=== PATIENT | female | born 1960 | race Caucasian/White ===

== ENCOUNTER 2016-08-22 12:56 | Inpatient (IN) | payer OTHER ==
[~2016-08-22] VITALS: Ht 157.5 cm; Wt 106.1 kg
--- NOTE | 2016-08-22 13:09 | NUR ---
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
[2016-08-22 13:23] LABS: BASOPHILS # (AUTO) 0.1 /CMM (0.0-0.2); BASOPHILS % (AUTO) 0.6 % (0.0-2.0); EOSINOPHILS # (AUTO) 0.1 /CMM (0.0-0.7); EOSINOPHILS % (AUTO) 0.8 % (0.0-6.0); HEMATOCRIT 40 % (33-45); HEMOGLOBIN 13.4 g/dL (11.5-14.8); LYMPHOCYTES % (AUTO) 41.6 % (20.0-44.0); MEAN CORPUSCULAR HEMOGLOBIN 29 PG (26.0-33.0); MEAN CORPUSCULAR HGB CONC 34 g/dl (31.0-36.0); MEAN CORPUSCULAR VOLUME 86 fL (82-100); MONOCYTES # (AUTO) 0.7 /CMM (0.1-1.30); MONOCYTES % (AUTO) 7.9 % (2.0-12.0); NEUTROPHILS # (AUTO) 4.7 /CMM (1.8-8.9); NEUTROPHILS % (AUTO) 49.1 % (43.0-81.0); PLATELET COUNT (AUTO) 380 /CMM (150-450); RDW COEFFICIENT OF VARIATION 13.2 (11.5-15.0); RED BLOOD CELL COUNT(AUTO) 4.65 MIL/uL (4.0-5.2); WHITE BLOOD COUNT (AUTO) 9.5 K/uL (4.3-11.0)
[2016-08-22] MEDS ORDERED: ASPIRIN 325 MG TABLET PO ONE (13:30)
[2016-08-22 13:33] LABS: CALCIUM, SERUM 9.1 mg/dL (8.5-10.1); CARBON DIOXIDE 28 mmol/L (21-32); CHLORIDE 100 mmol/L (98-107); CREATININE 0.7 mg/dL (0.6-1.3); GLUCOSE 134 mg/dL (74-106); POTASSIUM 3.6 mmol/L (3.5-5.1); SODIUM SERUM 136 mmol/L (136-145); UREA NITROGEN, BLOOD 16 mg/dL (7-18)
[2016-08-22] MEDS ORDERED: ASPIRIN 325 MG TABLET ONE (13:36)
[2016-08-22 13:39] LABS: ALANINE AMINOTRANSFERASE 36 U/L (12-78); ALBUMIN 3.6 g/dL (3.4-5.0); ALKALINE PHOSPHATASE 77 U/L (46-116); ASPARTATE AMINOTRANSFERASE 19 U/L (15-37); BILIRUBIN,DIRECT 0.1 mg/dL (0.0-0.2); BILIRUBIN,TOTAL 0.5 mg/dL (0.2-1.0); TOTAL PROTEIN, SERUM 8.1 g/dL (6.4-8.2)
[2016-08-22 13:41] LABS: TROPONIN I < 0.017 ng/mL (0.00-0.056)
[2016-08-22 13:47] LABS: INR 0.9 (0.87-1.13); PROTHROMBIN TIME 9.6 SECS (9.5-12.7)
[2016-08-22] MEDS ORDERED: IV NS 0.9% 250 ML IV ONE (14:06)
[2016-08-22] MEDS ORDERED: IOHEXOL-350 100 ML VIAL IV ONE (14:06)
[2016-08-22] MEDS ORDERED: CT SWABBABLE VALVE TRANS SET 1 EA INFUS.SET MC ONE (14:06)
[2016-08-22] MEDS ORDERED: HYDR25TA4 PO (14:43)
[2016-08-22] MEDS ORDERED: ATOR80TA PO (14:43)
[2016-08-22] MEDS ORDERED: GABA600T2 PO (14:43)
[2016-08-22] MEDS ORDERED: MAG HYDROX/AL HYDROX/SIMETH 30 ML UDC PO PRN (15:30)
[2016-08-22] MEDS ORDERED: ZOLPIDEM TARTRATE 5 MG TABLET PO PRN (15:30)
[2016-08-22] MEDS ORDERED: Z GUARD REMEDY 2 OZ OINT TP PRN (15:30)
[2016-08-22] MEDS ORDERED: MAGNESIUM HYDROXIDE 30 ML UDC PO PRN (15:30)
[2016-08-22] MEDS ORDERED: HYDROCODONE/APAP 5/325MG 1 EACH TABLET PO PRN (15:30)
[2016-08-22] MEDS ORDERED: ACETAMINOPHEN 325 MG TABLET PO PRN (15:30)
[2016-08-22] MEDS ORDERED: ONDANSETRON HCL/PF 4 MG/2 ML VIAL IVP PRN (15:30)
[2016-08-22 16:59] VITALS: BP 137/88
[2016-08-22] MEDS ORDERED: GABAPENTIN 100 MG CAPSULE PO SCH (17:00)
--- NOTE | 2016-08-22 17:00 | NUR ---
RN OPENING NOTES RECEIVED PATIENT FROM THE ER, NO SOB OR DISTRESS NOTED. NO CHEST PAIN AT THE MOMENT. PATIENT ON ROOM AIR. PATIENT ON TELE MONITOR SR HEART RATE OF 69. A/O X 4, VERBALLY RESPONSIVE AND ABLE TO MAKE NEEDS KNOWN. IV INTACT AND PATENT. KEPT PATIENT CLEAN AND COMFORTABLE IN BED. CALL LIGHT WITHIN PATIENT REACH, WILL CONTINUE TO MONITOR ACCORDINGLY.
--- NOTE | 2016-08-22 18:30 | NUR ---
RN NOTES PATIENT WANTED TO LEAVE AMA BUT ENCOURAGED HER TO STAY.
--- NOTE | 2016-08-22 19:27 | NUR ---
RN CLOSING NOTES ALL NEEDS PROVIDED, ATTENDED, AND ANTICIPATED. KEPT PATIENT CLEAN AND COMFORTABLE IN BED. CALL LIGHT WITHIN PATIENT REACH, WILL CONTINUE TO MONITOR ACCORDINGLY. ENDORSED TO NEXT SHIFT RN TO CONTINUE CARE
--- NOTE | 2016-08-22 19:30 | NUR ---
LOUVER MORTISER OPERATOR INITIAL NOTE RECEIVED PT WAKE AND ALERT ORIENTED X4, NO COMPLAINT OF PAIN OR RESPIRATORY DISTRESS, ACCORDING TO AM NURSE PT WANTS TO LEAVE AMA, SPOKE TO PATIENT AND EXPLAINED THE IMPORTANCE OF STAYING AND UNDERGOING ALL PERTINENT TEST TO DETERMINE CAUSE OF AILMENT, PT AGREED TO STAY OVERNIGHT, WILL MAINTAIN SAFETY MEASURES AT ALL TIMES, NEEDS WILL BE ANTICIPATED AND ATTENDED TO PROMPTLY.
--- NOTE | 2016-08-22 20:10 | NUR ---
UPON DOING ROUNDS, PT STATES THE DESIRE OF GOING HOME AMA AGAIN (SHE HAD EXPRESSED THIS DESIRE OF LEAVING AMA TO AM SHIFT NURSE BUT WAS ABLE TO RECONSIDER EARLIER AND DECIDED TO STAY) EXPLAINED THAT THERE IS A LEXISCAN SCHEDULE FOR TOMORROW AM TO DETERMINE ANY CARDIAC ABNORMALITIES PRESENT AND IMPORTANCE OF UNDERGOING THE APPROPRIATE TEST TO DETERMINE THE COURSE OF ACTION TO TAKE FOR HER RECOVERY, PT REFUSES TO STAY SAYING THAT SHE IS 100% SURE SHE WANTS TO LEAVE NOW, UNDERSTANDING THE POSSIBLE CONSEQUENCES OF HER LEAVING AMA. PROVIDED AMA FORM TO BE SIGNED, SUNG PETERS AND CHARGE NURSE INFORMED, STAND UP FORKLIFT OPERATOR AND IV ACCESS D/C'D, PT WAS ESCORTED BY TO EXIT THE HOSPITAL.
[2016-08-22] MEDS ORDERED: ATORVASTATIN 40 MG TABLET PO SCH (22:00)
[2016-08-23] MEDS ORDERED: PANTOPRAZOLE 40 MG TABLET.DR PO SCH (07:30)
[2016-08-23] MEDS ORDERED: REGADENOSON 0.4 MG/5 ML DISP.SYRIN IVP ONE (08:00)
[2016-08-23] MEDS ORDERED: HYDROCHLOROTHIAZIDE 25 MG TABLET PO SCH (09:00)
== END 2016-08-22 20:10 | disposition left against medical advice (07) | DRG 243 ==
LOC: ER 12:57 → TELE 15:51
DX: K21.9 Gastro-esophageal reflux disease without esophagitis (principal); Z68.41 Body mass index [BMI] 40.0-44.9, adult; E78.5 Hyperlipidemia, unspecified; Z85.43 Personal history of malignant neoplasm of ovary; E66.9 Obesity, unspecified; K44.9 Diaphragmatic hernia without obstruction or gangrene; R91.8 Other nonspecific abnormal finding of lung field
CPT/HCPCS: 36415; 71010-TC; 80048-TC; 80076-TC; 84484-TC; 85025-TC; 85730-TC; 93307-TC; A4606; J2785; J7050; Q9967; Z7610